=== PATIENT | male | born 1980 | race Caucasian/White ===

== ENCOUNTER 2021-07-23 09:33 | Emergency (ER) | payer BC ==
[~2021-07-23] VITALS: Ht 177.8 cm; Wt 101.2 kg
[2021-07-23] MEDS ORDERED: COZAAR 25 MG TA25 M1 PO (09:45)
[2021-07-23] MEDS ORDERED: CLONIDINE HCL0.1 M1 PO (09:45)
[2021-07-23] MEDS ORDERED: ZOLOFT25 MG PO (09:45)
[2021-07-23] MEDS ORDERED: PRILOSEC OTC20 MG PO (09:45)
[2021-07-23] MEDS ORDERED: NUVIGIL50 MG PO (09:46)
[2021-07-23] MEDS ORDERED: AUGMENTIN 875-1 EACH PO (10:17)
[2021-07-23 11:07] VITALS: BP 163/112
== END 2021-07-23 11:07 | disposition short-term general hospital (02) ==
LOC: M.ERS 09:33
DX: S81.811A Laceration without foreign body, right lower leg, initial encounter (principal); I10 Essential (primary) hypertension; Z79.899 Other long term (current) drug therapy; W26.8XXA Contact with other sharp object(s), not elsewhere classified, initial encounter; Y93.01 Activity, walking, marching and hiking; Y92.89 Other specified places as the place of occurrence of the external cause; Y99.8 Other external cause status